=== PATIENT | male | born 1970 | race Caucasian/White ===

== ENCOUNTER 2025-02-11 06:31 | Day surgery (SDC) | payer BC, SELFPAY | END 2025-02-11 11:56 | disposition home or self-care (01) | LOC: GI 06:31 | PROVIDERS: ATTENDING PHYSICIAN Internal Medicine Gastroenterology | DX: Z12.11 Encounter for screening for malignant neoplasm of colon (principal); K64.0 First degree hemorrhoids; D12.3 Benign neoplasm of transverse colon; D12.2 Benign neoplasm of ascending colon; K63.5 Polyp of colon | CPT/HCPCS: 45385; 45380; 88305 ==